=== PATIENT | female | born 1965 | race Caucasian/White ===

== ENCOUNTER → 2016-04-07 | Outpatient (CLI) | payer OTHER | LOC: RAD 11:47 | DX: N23 Unspecified renal colic (principal); R10.31 Right lower quadrant pain; R10.11 Right upper quadrant pain; R35.0 Frequency of micturition; N20.0 Calculus of kidney; N28.89 Other specified disorders of kidney and ureter; K76.0 Fatty (change of) liver, not elsewhere classified | CPT/HCPCS: Q9967 ==

== ENCOUNTER 2020-08-10 20:51 | Emergency (ER) | payer BC ==
[2020-08-10 21:19] LABS: BASO # 0.04 (0.02-0.10); EOS # 0.18 (0.04-0.40); EOS % 1.7 % (1.0-5.0); HEMATOCRIT 41.3 % (37.0-47.0); HEMOGLOBIN 14.1 g/dL (12.5-16.0); LYMPH# 2.35 (1.50-4.00); MEAN CELL VOLUME 91 fl (78-100); MEAN CORPUSCULAR HEMOGLOBIN 31 pg (27-31); MEAN CORPUSCULAR HGB CONC 34 g/dL (33-37); MEAN PLATELET VOLUME 9.4 fl (7.4-10.4); MONO # 0.49 (0.20-0.80); NEU # 7.45 (1.40-6.50); PLATELET COUNT 278 K/mm3 (130-400); RED BLOOD COUNT 4.55 M/mm3 (4.10-5.30); RED CELL DISTRIBUTION WIDTH 12.6 % (11.5-14.5); WHITE BLOOD COUNT 10.5 K/mm3 (4.8-10.8)
[2020-08-10 21:29] LABS: ALBUMIN 4.1 g/dL (3.5-5.0); POTASSIUM 3.5 mmol/L (3.5-5.1)
[2020-08-10 21:29] LABS: URINE APPEARANCE CLOUDY; URINE COLOR YELLOW
[2020-08-10 21:30] LABS: CALCIUM 9.2 mg/dL (8.3-10.5)
[2020-08-10 21:30] LABS: URINE BILIRUBIN NEGATIVE (NEGATIVE); URINE BLOOD TRACE (NEGATIVE); URINE GLUCOSE NEGATIVE (NEGATIVE); URINE KETONE NEGATIVE (NEGATIVE); URINE LEUKOCYTE ESTERASE 2+ (NEGATIVE); URINE NITRATE NEGATIVE (NEGATIVE); URINE PROTEIN(semi-quant) TRACE mg/dL (NEGATIVE); URINE UROBILINOGEN NORMAL (NORMAL); URINE WBC >50 /hpf (0-3)
[2020-08-10 21:31] LABS: TOTAL PROTEIN 7.4 g/dL (6.4-8.3)
[2020-08-10 21:33] LABS: TOTAL BILIRUBIN 0.3 mg/dL (0.2-1.2)
[2020-08-10] MEDS ORDERED: AMOXICILLIN 50500 MG PO (23:03)
[2020-08-10 23:27] VITALS: BP 127/86
== END 2020-08-10 23:17 | disposition home or self-care (01) ==
LOC: ED 20:51
PROVIDERS: Nurse Practitioner
DX: N21.0 Calculus in bladder (principal); E83.59 Other disorders of calcium metabolism; N29 Other disorders of kidney and ureter in diseases classified elsewhere; Z87.442 Personal history of urinary calculi; Z98.890 Other specified postprocedural states; Z84.1 Family history of disorders of kidney and ureter
CPT/HCPCS: J2405; J3010; J7030